=== PATIENT | female | born 1985 | race Caucasian/White ===

== ENCOUNTER 2021-06-23 13:57 | Inpatient (IN) | payer BC ==
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
[2021-06-23 15:19] LABS: Appearance,Urine Cloudy (Clear); Bacteria,Urine Occasional /hpf; Bilirubin,Urine Negative (Negative); Blood,Urine Negative (Negative); Color,Urine Yellow; Glucose,Urine (UA) Negative (Negative); Hyaline Casts,Urine 7 /lpf (0-2); Ketones,Urine 3+ (Negative); Leukocyte Esterase,Urine Small (Negative); Mucus,Urine Few /hpf; Nitrite,Urine Negative (Negative); PH, Urine 5.5 (5.0-8.0); Protein,Urine Trace (Negative); RBC,Urine 2 /hpf (0-5); Specific Gravity,Urine 1.016 (1.001-1.035); Squamous Epithelial Cell,Urine 38 /hpf (0-4); Urobilinogen,Urine <2.0 mg/dL (<2.0); WBC,Urine 9 /hpf (0-5)
[2021-06-23 15:34] LABS: Amphetamine Screen,Urine Not Detected (NotDetected); Barbiturate Screen,Urine Not Detected (NotDetected); Benzodiazepines Screen,Urine Not Detected (NotDetected); Cocaine Screen,Urine Not Detected (NotDetected); Methadone Screen, Urine Not Detected (NotDetected); Opiate Screen,Urine Not Detected (NotDetected); Oxycodone Screen, Urine Not Detected (NotDetected); Phencyclidine Screen,Urine Not Detected (NotDetected); Tricyclic Antidepressant,Urine Not Detected (NotDetected); Urn Cannabinoid Scrn Not Detected (NotDetected)
--- NOTE | 2021-06-23 15:39 | XR ---
EXAMINATION TYPE: XR ankle complete LT DATE OF EXAM: 06/23/2021 COMPARISON: NONE HISTORY: Pain TECHNIQUE: 3 views of the left ankle are submitted for evaluation. FINDINGS: Mildly comminuted fracture involving the medial malleolus at the level of the ankle mortise . Ankle mortise is intact. No additional fractures identified within the [id number] at this time. Incidental os navicularis. IMPRESSION: 1. Mildly comminuted fracture involving the medial malleolus at the level of the ankle mortise.
[2021-06-23] MEDS ORDERED: SODIUM CHLORIDE 0.9% 1,000 ML IV ONE (16:03)
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
[2021-06-23 16:16] LABS: Basophils # (A) 0.1 k/uL (0-0.2); Basophils % (A) 1 %; Eosinophils # (A) 0.1 k/uL (0-0.7); Eosinophils % (A) 1 %; HCT 43.7 % (34.0-46.0); HGB 14.8 gm/dL (11.4-16.0); Lymphocytes # (A) 1.6 k/uL (1.0-4.8); Lymphocytes % (A) 14 %; MCV 97.1 fL (80.0-100.0); Mean Platelet Volume 7.1; Monocytes # (A) 0.4 k/uL (0-1.0); Monocytes % (A) 4 %; Neutrophils # (A) 9.3 k/uL (1.3-7.7); Neutrophils % (A) 80 %; Platelet Count 317 k/uL (150-450); RDW 12.5 % (11.5-15.5); WBC 11.7 k/uL (3.8-10.6)
[2021-06-23 16:25] LABS: ALT 21 U/L (4-34); AST 30 U/L (14-36); African American GFR (CKD) >90 (>60 ml/min/1.73 sqM); Albumin 4.7 g/dL (3.5-5.0); Alcohol <10 mg/dL; Alkaline Phosphatase 69 U/L (38-126); Anion Gap 11 mmol/L; Blood Urea Nitrogen 12 mg/dL (7-17); Calcium 9.1 mg/dL (8.4-10.2); Carbon Dioxide 23 mmol/L (22-30); Chloride 104 mmol/L (98-107); Glucose 124 mg/dL (74-99); Non-African American GFR(CKD) >90 (>60 ml/min/1.73 sqM); Potassium 3.5 mmol/L (3.5-5.1); Sodium 138 mmol/L (137-145); Total Bilirubin 0.9 mg/dL (0.2-1.3)
[2021-06-23] MEDS ORDERED: KETOROLAC 15 MG/ML 1 ML VIAL IVP STA (16:33)
[2021-06-23 16:49] LABS: Partial Thromboplastin Time 22.2 sec (22.0-30.0); Prothrombin Time 11.3 sec (9.0-12.0)
[2021-06-23] MEDS ORDERED: NEOMYCIN-BACITRACIN-POLY OINT 1 APPLIC/EACH PACKET TOPICAL STA (17:02)
--- NOTE | 2021-06-23 20:30 | XR ---
EXAMINATION TYPE: XR forearm bilateral DATE OF EXAM: 06/23/2021 COMPARISON: NONE HISTORY: Pain TECHNIQUE: 2 views each forearm FINDINGS: Radius and ulna appear intact. I see no fracture nor dislocation. Elbow joints appear intac t. The wrist joints are intact. No sign of elbow joint effusion. IMPRESSION: Negative bilateral forearm exam.
[2021-06-23] MEDS ORDERED: HYDROcodone/APAP 5-325MG 1 EACH TAB PO PRN (21:20)
[2021-06-23] MEDS ORDERED: MAG HYDROX/AL HYDROX/SIMETH 30 ML CUP PO PRN (22:16)
[2021-06-23] MEDS ORDERED: HALOPERIDOL LACTATE 5 MG/ML 1 ML VIAL IM PRN (22:16)
[2021-06-23] MEDS ORDERED: LORazepam 1 MG TAB PO PRN (22:16)
[2021-06-23] MEDS ORDERED: MAGNESIUM HYDROXIDE 2,400 MG/10 ML CUP PO PRN (22:16)
[2021-06-23] MEDS ORDERED: QUEtiapine 50 MG TAB PO PRN (22:21)
[2021-06-23] MEDS ORDERED: haloperidoL 5 MG TAB PO PRN (22:21)
[2021-06-23] MEDS ORDERED: LORazepam 2 MG/ML INJ IM PRN (22:21)
[2021-06-24 00:10] VITALS: RESP 16
[2021-06-24] MEDS: ACETAMINOPHEN TAB 325 MG TAB PO PRN (02:31)
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
[2021-06-24] MEDS: FAMOTIDINE 20 MG TAB PO SCH (08:36)
[2021-06-24] MEDS ORDERED: NICOTINE 7MG/24HR PATCH TRANSDERM SCH (09:00)
[2021-06-24 09:12] LABS: Chol/HDL Ratio 2.18 Ratio; LDL Cholesterol,Calculated 73.6 mg/dL (0.0-131.0); VLDL Calculation 11.86 mg/dL (5.00-40.00)
[2021-06-24] MEDS ORDERED: LORazepam 1 MG TAB PO PRN (09:32)
[2021-06-24] MEDS ORDERED: risperiDONE 0.5 MG TAB PO STA (11:34)
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
[2021-06-24] MEDS: NICOTINE GUM (POLACRILEX) 2 MG GUM BUCCAL PRN (15:29)
[2021-06-24] MEDS: BACITRACIN OINT 1 EACH PACKET TOPICAL SCH (15:29)
[2021-06-25] MEDS: FAMOTIDINE 20 MG TAB PO SCH ×3 (01:51→20:24)
[2021-06-25] MEDS: BACITRACIN OINT 1 EACH PACKET TOPICAL SCH ×4 (01:51→20:26)
[2021-06-25] MEDS: risperiDONE 1 MG TAB PO SCH ×3 (01:51→20:26)
[2021-06-25] MEDS: IBUPROFEN 800 MG TAB PO PRN ×3 (01:54→17:11)
[2021-06-25] MEDS: NICOTINE GUM (POLACRILEX) 2 MG GUM BUCCAL PRN ×3 (01:55→17:12)
--- NOTE | 2021-06-25 11:12 | P.PN ---
Progress Note - Text Progress Note Date: 06/25/21 Interval History: Patient was seen attending group and was directable and agreeable to speak with card writer hand in her room. Currently, the patient is not reporting any significant issues regarding her mood. She is denying any suicidal or homicidal ideation, intention, and/or plan. She is not reporting any auditory or visual hallucinations is denying any paranoia or other delusions at this time. The patient was noted to have slept for only 3 hours last night. Despite this, the patient is not reporting any significant issues regarding her energy. The patient expresses that she and her are currently not getting along and that she is having a different account of her previous psychiatric history as compared to him. The patient's reported to this provider that the patient has had multiple manic episodes in the past including impulsive spending, euphoria, and at times extreme fear and delusional thoughts. The patient is vehemently denying any of these. She reports that she is currently not spending impulsively as she has given him shopping for Lent. She has been in adherent with her medications and is reporting mild sedation as a side effect. She does not wish to go up on the medications at this time. As per team meeting, there is also question of infidelity on the patient's part. The patient reportedly also expressed her that she plans on him. This will need to be further explored as it appears to be impulsive at th is time. Mental Status Exam: General Appearance: Patient appears to be stated age is alert, directable, and cooperative. Behavior: Patient is calmly seated without any agitated behavior. Speech: Patient's speech is fluent and nonpressured. Mood/Affect: Mood is "feeling pretty good." Affect is expansive and bright. Suicidality/Homicidality: Patient denies any suicidal or homicidal ideation. Perceptions: Patient denies any visual hallucinations and denies any auditory hallucinations Though content/process: There is no evidence of any delusional thought content and thought process is linear and goal-directed. Memory and concentration: AOX3, grossly intact for the purposes of this session Judgment and insight: Improving mildly Vital Signs Temp 98.7 F 06/24/21 07:04 Pulse 101 H 06/24/21 07:04 Resp 16 06/23/21 21:16 BP 124/68 06/24/21 07:04 Pulse Ox 98 06/24/21 07:04 Assessment Acute psychotic episode Rule out bipolar disorder, type I, manic episode Nicotine dependence Plan: -Patient continues to meet criteria for inpatient psychiatric admission for symptom stabilization and safety. Patient has signed adult voluntary form and medication consent and was placed in patient's chart. -Will try to obtain collateral information from the patient's sister -Medications: Continue Risperdal 1 mg by mouth twice a day for mood stabilization/psychosis -When necessary Ativan and Haldol for agitation/aggression. -NRT -Nicorette gum -SW on board for discharge planning. Encouraged the patient to participate in milieu.
[2021-06-25] MEDS: ACETAMINOPHEN TAB 325 MG TAB PO PRN (20:26)
[2021-06-26] MEDS: ACETAMINOPHEN TAB 325 MG TAB PO PRN ×3 (05:35→13:31)
[2021-06-26 06:49] VITALS: BP 137/56; PULSE 72; TEMP 97.9
[2021-06-26] MEDS: IBUPROFEN 800 MG TAB PO PRN ×2 (07:59→16:18)
[2021-06-26] MEDS: BACITRACIN OINT 1 EACH PACKET TOPICAL SCH ×2 (08:34→15:43)
[2021-06-26] MEDS: FAMOTIDINE 20 MG TAB PO SCH (08:34)
[2021-06-26] MEDS: risperiDONE 1 MG TAB PO SCH (08:34)
[2021-06-26] MEDS: NICOTINE GUM (POLACRILEX) 2 MG GUM BUCCAL PRN ×3 (08:34→17:24)
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
== END 2021-06-26 17:30 | disposition home or self-care (01) | DRG 885 ==
LOC: EC 13:57 → 3MHU 21:07
PROVIDERS: ADMIT Psychiatry & Neurology Psychiatry; ATTEND Psychiatry & Neurology Psychiatry
DX: F23 Brief psychotic disorder (principal); D72.829 Elevated white blood cell count, unspecified; F17.200 Nicotine dependence, unspecified, uncomplicated; F43.10 Post-traumatic stress disorder, unspecified; S50.819A Abrasion of unspecified forearm, initial encounter; V89.2XXA Person injured in unspecified motor-vehicle accident, traffic, initial encounter; Y92.410 Unspecified street and highway as the place of occurrence of the external cause; Z79.899 Other long term (current) drug therapy; Z20.822 Contact with and (suspected) exposure to COVID-19
CPT/HCPCS: 36415; 70450; 72125; 80053; 80061; 80306; 80320; 81001; 82075; 83036; 84443; 85025; 85610; 85730; 87635; 96360; 96361; 99285